=== PATIENT | female | born 1985 | race Two or more races ===

== ENCOUNTER 2018-10-08 19:54 | Emergency (ER) | payer SELFPAY ==
[2018-10-08] MEDS ORDERED: Dexamethasone Sodium Phos 4 mg/mL Vial INH STA (20:31)
[2018-10-08] MEDS ORDERED: Albuterol/Ipratropium Neb 3 ML AERS HHN ONE ×2 (20:31→20:36)
--- NOTE | 2018-10-08 20:43 | ED Physician Chart ---
ED Chief Complaint/HPI - Patient Information Date Seen:: 10/08/18 Time Seen:: 20:37 Chief Complaint:: cough sore throat History of Present Illness:: 33 yr old female with cough sore throat for few days taking metronidazole for private infection and requesting codeine cough medicine Allergies:: Allergies Allergy/AdvReac Type Severity Reaction Status Date / Time No Known Allergies Allergy Verified 10/08/18 20:11 Vitals:: Vital Signs - 8 hr 10/08/18 20:00 Temp 98.7 F HR 98 RR 18 BP 123/85 O2 Sat % 99 ED Review of Systems - Review of Systems General/Constitutional: Fever Skin: No skin lesions Head: Headache Eyes: No loss of vision ENT: No earache Neck: No neck pain Cardio Vascular: No chest pain Pulmonary: Cough GI: No vomiting, No diarrhea G/U: No dysuria Musculoskeletal: No bone or joint pain Endocrine: No polyuria Hematopoietic: No bruising Allergic/Immuno: No urticaria Neurological: No syncope ED Past Medical History - Past Medical History Past Medical History: Asthma/COPD Family Medical History - Family Member Mother Other Medical History: asthma ED Physical Exam - Physical Examination Skin: Nl inspection Other ENMT comments:: oropharynx injected Neck: Nontender Respiratory: Nl effort/Exclusion Cardio Vascular: RRR GI: No tenderness/rebounding/guarding : No CVA tenderness Extremities: No tenderness or effusion Neuro/Psych: Alert/oriented ED Assessment - Assessment General Assessment: cough sore throat ED Septic Shock - . Is Septic Shock (SBP<90, OR Lactate>4 mmol\L) present?: No - <6hrs of presentation: Vital Signs: Vital Signs - 8 hr 10/08/18 20:00 Temp 98.7 F HR 98 RR 18 BP 123/85 O2 Sat % 99 ED Reassessment (Disposition) - Reassessment Reassessment:: cough sore throat - Patient Disposition Discharge/Transfer:: Elope/AWOL Condition at Disposition:: Stable
== END 2018-10-08 20:30 | disposition left against medical advice (07) ==
LOC: ER 19:54
DX: J02.9 Acute pharyngitis, unspecified (principal); R05 Cough; J44.9 Chronic obstructive pulmonary disease, unspecified
CPT/HCPCS: 94640; Z7502

== ENCOUNTER 2018-10-23 22:43 | Emergency (ER) | payer SELFPAY ==
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
--- NOTE | 2018-10-24 09:08 | Diagnostic Imaging Report ---
Left knee (3 views) HISTORY: Pain No acute bony abnormalities. No fractures. Joint spaces appear normal. IMPRESSION: No acute abnormalities
--- NOTE | 2018-10-24 09:08 | Diagnostic Imaging Report ---
Lumbar spine (2 views) HISTORY: Pain, trauma There is a scoliosis of the lumbar spine convexity to the left. Alignment is normal. Disc spaces appear normal. No acute abnormalities. No fractures. IMPRESSION: 1. No acute abnormalities 2. Scoliosis
== END 2018-10-24 00:02 | disposition home or self-care (01) ==
LOC: ER 22:43
DX: S39.012A Strain of muscle, fascia and tendon of lower back, initial encounter (principal); S80.02XA Contusion of left knee, initial encounter; J44.9 Chronic obstructive pulmonary disease, unspecified; V89.2XXA Person injured in unspecified motor-vehicle accident, traffic, initial encounter; Y93.89 Activity, other specified; Y92.410 Unspecified street and highway as the place of occurrence of the external cause; Y99.8 Other external cause status
CPT/HCPCS: 72110-TC; 73562-TC-LT; Z7502

== ENCOUNTER 2018-10-29 22:25 | Emergency (ER) | payer SELFPAY ==
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
== END 2018-10-30 00:53 | disposition home or self-care (01) ==
LOC: ER 22:25
DX: M54.5 Low back pain (principal)
CPT/HCPCS: 99282; J1885; Z7610

== ENCOUNTER 2018-12-16 21:31 | Emergency (ER) | payer SELFPAY ==
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
[2018-12-16 22:27] LABS: URINE SOURCE CLEAN C
[2018-12-16 22:33] LABS: URINE BILIRUBIN NEGATIVE (NEGATIVE); URINE BLOOD TRACE (NEGATIVE); URINE GLUCOSE (UA) NEGATIVE (NEGATIVE); URINE KETONE NEGATIVE (NEGATIVE); URINE LEUKOCYTE ESTERASE SMALL (NEGATIVE); URINE MICROSCOPIC INDICATED? YES; URINE NITRATE NEGATIVE (NEGATIVE); URINE PROTEIN TRACE mg/dL (NEGATIVE)
[2018-12-16 22:43] LABS: URINE CLARITY HAZY (CLEAR); URINE COLOR YELLOW
[2018-12-16 22:44] LABS: URINE RBC 0-2 /hpf (0-5)
[2018-12-16 22:46] LABS: URINE BACTERIA 3+ /hpf (NONE SEEN); URINE EPITHELIAL CELLS FEW /lpf (FEW)
== END 2018-12-16 22:39 | disposition home or self-care (01) ==
LOC: ER 21:31
DX: S16.1XXA Strain of muscle, fascia and tendon at neck level, initial encounter (principal); S39.012A Strain of muscle, fascia and tendon of lower back, initial encounter; X58.XXXA Exposure to other specified factors, initial encounter; Y93.89 Activity, other specified; Y92.89 Other specified places as the place of occurrence of the external cause; Y99.8 Other external cause status
CPT/HCPCS: 81001-TC; 81025-TC; 87086-90; Z7502; Z7610